=== PATIENT | male | born 1945 ===

== ENCOUNTER → 2018-09-11 21:13 | Outpatient (ROUT) | payer OTHER, SELFPAY ==
[2018-09-16 16:56] LABS: C.albicans IgA < 0.1; C.albicans IgG 0.3; C.albicans IgM 0.1 (<1.0)
== END ==
PROVIDERS: Visit Provider Family Medicine
DX: B37.82 Candidal enteritis (principal); R53.1 Weakness
CPT/HCPCS: 36415; 86628